=== PATIENT | male | born 1980 | race African-American/Black ===

== ENCOUNTER 2022-09-01 13:46 | Inpatient (IN) ==
[2022-09-01] MEDS ORDERED: ACETAMINOPHEN 325 MG TABLET PO ONE (14:00)
[2022-09-01] MEDS ORDERED: ASPIRIN 325 MG TABLET PO STA (14:00)
[2022-09-01 14:33] LABS: Basophils % 0.6 % (0.0-0.8); Eosinophils % 0.2 % (0.00-10.9); Hematocrit 25.2 VOL% (42.0-52.0); Hemoglobin 7.4 GM/DL (14.0-18.0); Immature Granulocytes % 0.4 %; Immature Granulocytes Absolute 0.02 #; Lymphocytes # 0.7 10*3/uL (1.4-4.0); Lymphocytes % 12.8 % (21.2-54.2); Mean Corpuscular HGB Conc 29.4 GM/DL (32-36); Mean Platelet Volume 10.6 FL (9.6-12.0); Monocytes # 0.5 10*3/uL (0.11-0.8); Monocytes % 9.6 % (1.7-12.7); Neutrophils % 76.4 % (38.7-73.9); Platelet Count 200 T/CUMM (130-400); Red Blood Count 2.68 MC/CUMM (3.8-5.5); White Blood Count 5.4 T/CUMM (4-12)
[2022-09-01 14:41] LABS: PT Patient Result 11.1 SECS (10.1-12.1)
[2022-09-01 14:52] LABS: Alanine Aminotransferase 66 U/L (16-61); Albumin 2.6 G/DL (3.4-5.0); Alkaline Phosphatase 156 U/L (45-117); Aspartate Amino Transferase 48 U/L (0-37); Bilirubin,Total < 0.39 MG/DL (0.20-1.00); Blood Urea Nitrogen 32 MG/DL (7-18); Calcium 8.5 MG/DL (8.5-10.1); Carbon Dioxide 32 MMOL/L (21-32); Chloride 103 MMOL/L (98-107); Glucose 164 MG/DL (74-106); Osmolality,Calculated 287.5 MOS/KG (273-304); Potassium 3.8 MMOL/L (3.5-5.1); Sodium 139 MMOL/L (136-145); Total Protein 7.7 G/DL (6.4-8.2)
[2022-09-01] MEDS ORDERED: ONDANSETRON 4 MG/2 ML VIAL IV PRN (15:26)
[2022-09-01] MEDS ORDERED: ACETAMINOPHEN 325 MG TABLET PO PRN (15:26)
[2022-09-01] MEDS ORDERED: MAGNESIUM HYDROXIDE SUSP 30 ML UDCUP PO PRN (15:34)
[2022-09-01] MEDS: FUROSEMIDE 80 MG TABLET PO SCH (19:21)
[2022-09-01] MEDS: PIPERACILLIN/TAZOBACTAM 3,375 MG in SODIUM CHLORIDE 0.9% 100 ML IV SCH (19:22)
[2022-09-01] MEDS: INSULIN REGULAR 100 UNIT/ML SUBCUT SCH ×2 (19:26→21:13)
[2022-09-01] MEDS ORDERED: ESCITALOPRAM 10 MG TABLET PO SCH (21:00)
[2022-09-01] MEDS: ATORVASTATIN 20 MG TABLET PO SCH (21:13)
[2022-09-01] MEDS: hydrALAZINE 25 MG TABLET PO SCH (21:13)
[2022-09-01] MEDS: ISOSORBIDE DINITRATE 10 MG TABLET PO SCH (21:13)
[2022-09-01] MEDS: AZITHROMYCIN INJ 500 MG in SODIUM CHLORIDE 0.9% 250 ML IV SCH (22:48)
[2022-09-02] MEDS ORDERED: ALBUTEROL/IPRATROPIUM 3 ML NEB RESP TX PRN (03:30)
[2022-09-02 04:44] LABS: Basophils % 0.8 % (0.0-0.8); Eosinophils % 0.8 % (0.00-10.9); Hematocrit 25.2 VOL% (42.0-52.0); Hemoglobin 7.6 GM/DL (14.0-18.0); Immature Granulocytes % 0.4 %; Immature Granulocytes Absolute 0.02 #; Mean Corpuscular HGB Conc 30.2 GM/DL (32-36); Mean Corpuscular Volume 91.3 FL (87-102); Mean Platelet Volume 10.3 FL (9.6-12.0); Monocytes # 0.8 10*3/uL (0.11-0.8); Monocytes % 15.4 % (1.7-12.7); Neutrophils % 62.6 % (38.7-73.9); Platelet Count 187 T/CUMM (130-400); Red Blood Count 2.76 MC/CUMM (3.8-5.5); Red Cell Distribution Width 17.6 % (9.3-17.3); White Blood Count 4.9 T/CUMM (4-12)
[2022-09-02 05:11] LABS: Alanine Aminotransferase 57 U/L (16-61); Albumin 2.6 G/DL (3.4-5.0); Alkaline Phosphatase 144 U/L (45-117); Aspartate Amino Transferase 41 U/L (0-37); Bilirubin,Total < 0.39 MG/DL (0.20-1.00); Blood Urea Nitrogen 41 MG/DL (7-18); Calcium 8.5 MG/DL (8.5-10.1); Carbon Dioxide 29 MMOL/L (21-32); Chloride 104 MMOL/L (98-107); Glucose 156 MG/DL (74-106); Osmolality,Calculated 289.5 MOS/KG (273-304); Potassium 3.6 MMOL/L (3.5-5.1); Sodium 139 MMOL/L (136-145); Total Protein 7.9 G/DL (6.4-8.2)
[2022-09-02] MEDS: PIPERACILLIN/TAZOBACTAM 3,375 MG in SODIUM CHLORIDE 0.9% 100 ML IV SCH ×2 (06:00→17:56)
[2022-09-02] MEDS ORDERED: hydrALAZINE 25 MG TABLET PO SCH (09:00)
[2022-09-02] MEDS: FOLIC ACID 1 MG TABLET PO SCH (10:21)
[2022-09-02] MEDS: MULTIVITAMIN (BEROCCA) TABLET PO SCH (10:21)
[2022-09-02] MEDS: FERROUS SULFATE 325 MG TABLET PO SCH (10:21)
[2022-09-02] MEDS: DOCUSATE SODIUM 100 MG CAPSULE PO SCH (10:21)
[2022-09-02] MEDS: PANTOPRAZOLE 40 MG TABLET PO SCH (10:21)
[2022-09-02] MEDS: ISOSORBIDE DINITRATE 10 MG TABLET PO SCH ×2 (10:21→21:39)
[2022-09-02] MEDS: amLODIPine 10 MG TABLET PO SCH (10:21)
[2022-09-02] MEDS: FUROSEMIDE 80 MG TABLET PO SCH ×2 (10:21→17:56)
[2022-09-02] MEDS: INSULIN REGULAR 100 UNIT/ML SUBCUT SCH ×4 (10:26→21:39)
[2022-09-02] MEDS: hydrALAZINE 25 MG TABLET PO SCH ×3 (10:43→21:40)
[2022-09-02] MEDS ORDERED: HEPARIN 10,000 UNIT/10 ML VIAL IV PRN (13:02)
[2022-09-02] MEDS ORDERED: traZODone 50 MG TABLET PO SCH (21:00)
[2022-09-02] MEDS ORDERED: TAMSULOSIN 0.4 MG CAPSULE PO SCH (21:00)
[2022-09-02] MEDS: ATORVASTATIN 20 MG TABLET PO SCH (21:40)
[2022-09-02] MEDS: AZITHROMYCIN INJ 500 MG in SODIUM CHLORIDE 0.9% 250 ML IV SCH (22:05)
[2022-09-03] MEDS: VANCOMYCIN 125 MG CAPSULE PO SCH ×2 (05:21→12:50)
[2022-09-03] MEDS: PIPERACILLIN/TAZOBACTAM 3,375 MG in SODIUM CHLORIDE 0.9% 100 ML IV SCH (05:24)
[2022-09-03 06:09] LABS: Eosinophils # 0.1 10*3/uL (0.0-0.87); Eosinophils % 2.5 % (0.00-10.9); Hematocrit 23.8 VOL% (42.0-52.0); Hemoglobin 7.1 GM/DL (14.0-18.0); Immature Granulocytes % 0.5 %; Immature Granulocytes Absolute 0.02 #; Lymphocytes # 0.7 10*3/uL (1.4-4.0); Lymphocytes % 17.9 % (21.2-54.2); Mean Corpuscular HGB Conc 29.8 GM/DL (32-36); Mean Corpuscular Volume 91.9 FL (87-102); Mean Platelet Volume 10.6 FL (9.6-12.0); Monocytes # 0.7 10*3/uL (0.11-0.8); Monocytes % 17.9 % (1.7-12.7); Neutrophils % 60.2 % (38.7-73.9); Platelet Count 176 T/CUMM (130-400); Red Blood Count 2.59 MC/CUMM (3.8-5.5); Red Cell Distribution Width 17.2 % (9.3-17.3); White Blood Count 4.1 T/CUMM (4-12)
[2022-09-03 06:30] LABS: Calcium 8.2 MG/DL (8.5-10.1); Osmolality,Calculated 286.3 MOS/KG (273-304); Potassium 3.5 MMOL/L (3.5-5.1)
[2022-09-03 06:34] LABS: Eosinophils 3 % (0-10); Lymphocytes 14 % (20-55); Total Cells Counted 100
[2022-09-03 06:35] LABS: Hypochromia Slight; Macrocytosis Slight
[2022-09-03 06:36] LABS: Platelet Estimate Adequate
[2022-09-03] MEDS: INSULIN REGULAR 100 UNIT/ML SUBCUT SCH ×3 (08:41→18:15)
[2022-09-03] MEDS ORDERED: ASPIRIN EC 81 MG TABLET PO SCH (09:00)
[2022-09-03] MEDS: hydrALAZINE 25 MG TABLET PO SCH ×2 (11:41→17:16)
[2022-09-03] MEDS: MULTIVITAMIN (BEROCCA) TABLET PO SCH (11:41)
[2022-09-03] MEDS: FUROSEMIDE 80 MG TABLET PO SCH ×2 (11:41→18:15)
[2022-09-03] MEDS: DOCUSATE SODIUM 100 MG CAPSULE PO SCH (11:41)
[2022-09-03] MEDS: amLODIPine 10 MG TABLET PO SCH (11:42)
[2022-09-03] MEDS: FOLIC ACID 1 MG TABLET PO SCH (11:42)
[2022-09-03] MEDS: ISOSORBIDE DINITRATE 10 MG TABLET PO SCH (11:42)
[2022-09-03] MEDS: FERROUS SULFATE 325 MG TABLET PO SCH (11:42)
[2022-09-03] MEDS: PANTOPRAZOLE 40 MG TABLET PO SCH (11:42)
[2022-09-03 11:55] LABS: Amylase,Body Fluid 20 U/L; Glucose,Pleural Fluid 131 MG/DL; LDH,Body Fluid 58 U/L; Total Protein,Body Fluid 2.1 G/DL; Triglycerides,Body Fluid 53 MG/DL
[2022-09-03 12:35] LABS: Lymphocytes,Pleural Fluid 92 %; Monocytes,Pleural Fluid 3 %; Neutrophils,Pleural Fluid 5 %
[2022-09-03 12:36] LABS: RBC,Pleural Fluid 9811 T/CUMM
[2022-09-03] MEDS ORDERED: EPINEPHrine 1 MG/10 ML SYRINGE IV ONE (15:06)
[2022-09-03] MEDS ORDERED: SODIUM BICARBONATE 50 MEQ/50 ML SYRINGE IV ONE (15:08)
[2022-09-03] MEDS ORDERED: CALCIUM CHLORIDE 1,000 MG/10 ML SYRINGE IV ONE (15:08)
[2022-09-03] MEDS ORDERED: DEXTROSE 50% 25 GM/50 ML SYRINGE IV ONE (15:12)
[2022-09-03 19:12] VITALS: BP 153/88
== END 2022-09-03 15:19 | disposition expired | DRG 193 ==
LOC: N.ED 13:46 → N.CVR 15:26 → SUATTDRO 15:26 → N.3E 17:39
PROVIDERS: ADMIT Internal Medicine; ATTEND Hospitalist